=== PATIENT | male | born 1990 | race African-American/Black ===

== ENCOUNTER 2016-11-24 12:09 | Emergency (ER) | payer SELFPAY ==
[~2016-11-24] VITALS: Ht 177.8 cm; Wt 94.4 kg
[2016-11-24 12:11] VITALS: TEMP 36.8; Ht 177.8 cm; Wt 94.4 kg
--- NOTE | 2016-11-24 12:56 | EMERGENCY ROOM VISIT NOTE ---
ED Visit Note First contact with patient: 12:20 26-year-old male with long history of eczema now comes in complaining of worsening rash on the dorsum of both feet. The patient was fully evaluated by Justino Queen PA-C. Please see his note. I also independently evaluated the patient. The patient be placed on short course of steroids and Keflex for early cellulitis. The patient will need follow-up with dermatology.
[2016-11-24] MEDS ORDERED: CEPH500C2 PO (12:59)
[2016-11-24] MEDS ORDERED: METH4PAK PO (12:59)
[2016-11-24 13:06] VITALS: BP 130/74; PULSE 79; O2SAT 99
--- NOTE | 2016-11-25 11:44 | Pharmacy Progress Note ---
ED Pharmacist Culture FollowUp Date of Service: Nov 25, 2016. Left foot deep wound culture from 11/24/16 is reporting growth of 2 organisms: staph aureus and GAS - these are preliminary results and no sensitivities are yet reported. This patient was seen on 11/24 w/ c/o worsening rash / eczema on dorsum of L foot. Dr Olivo's note states pt was felt to have cellulitis and was discharged w/ Rx for Keflex 500mg QID x 7 days. This is reasonable empiric therapy and would cover GAS as well as MSSA. No action required at this time. Will await final sensitivities.
--- NOTE | 2016-11-25 17:54 | EMERGENCY ROOM VISIT NOTE ---
ED Visit Note First contact with patient: 12:20 Chief Complaint: Rash. History of Present Illness: Mr. Dsouza is a 26-year-old male who ambulates into the ED complaining of a rash on the dorsum aspects of both feet. Historically patient reports he has a history of eczema. He has never been seen by a specialist. Patient reports approximately 3-4 days ago he started noting an exacerbation of his eczema. He reports he has an [id number] "sugar scrub" that he's been using over top of the eczema on the dorsum aspects of both feet. Over the last 2 days he has noted his rash increasing as well as becoming scabbed over. He has also noted some moderate increase in pain in this area. Currently he describes his pain as a burning sensation. He rates his discomfort 6/10. The pain is nonradiating. The pain worsens with palpation and ambulation. He has not identified any alleviating factors related to the pain. He has not taken any medications for pain prior to arrival at the hospital. He denies any associated symptoms including fevers, chills, sweats, shortness of breath, cough, wheezing, abdominal pain, nausea, vomiting, decreased appetite, extremity weakness/numbness/tingling. Review of Systems: As noted above in history of present illness. 8 body systems were reviewed and found to be negative as noted above. Past Medical History: As previously noted, asthma. Current Medications: Patient denies. Allergies to Medications: Patient denies. Social History: Patient is currently employed; he feels safe in his home environment; he admits to tobacco and alcohol use. Physical Examination: Vital Signs: Date Time Temp Pulse Resp B/P Pulse Ox O2 Delivery O2 Flow Rate FiO2 11/24/16 13:06 79 16 130/74 99 11/24/16 12:11 36.8 69 17 137/87 100 Room Air GENERAL: 26-year-old male in mild distress due to pain, nontoxic-appearing, afebrile and hemodynamically stable. NEUROLOGICAL: Awake, alert and oriented to person, place and time. Answering questions appropriately and following commands. Normal gait. Good hand eye coordination. No focal motor sensory deficits. SKIN: Warm, dry and pink. Feet: Right: Patient has a thickened in scabbed rash that is sitting was an erythematous base. It is seeping a small amount of purulent like material. There are small vesicles noted on the erythematous base. There is no lymphangitis. Left: Rash is similar appearing to the right foot but is slightly smaller than the right. THORAX: Lungs sounds are clear to auscultation and equal bilaterally with symmetrical chest wall. ABDOMEN: Flat, soft and nontender. Positive bowel sounds in all quadrants. No guarding, rigidity or organomegaly. EXTREMITIES: Moves all extremities well on command and with purpose. All distal neurovascular statuses are intact and equal bilaterally. Feet: Please note SKIN above. No gross bony disease. No bony tenderness, bony crepitus. Full range of motion in all movements of the ankles and toes against resistance. Skin was warm and pink and capillary refill is brisk. He is able to distinguish light sensations through all dermatomes. ED Course: Patient is assessed as noted above. Patient's case was reviewed with Dr. Olivo; we agreed on diagnostic approach, treatment, disposition and plan. Patient was educated about tonight's findings and instructed on his treatment plan; he verbalizes understanding and agreement with this plan. Clinical Impression: Eczema exacerbation. Underlying cellulitis. Disposition: Patient discharged home in stable condition; prior to departure he was reassessed and subjectively reported he was feeling the same. Plan: Patient was prescribed Keflex 500 mg 4 times a day for 7 days. Patient was prescribed a Medrol Dosepak and instructed on achieves. Patient was encouraged to use ibuprofen and acetaminophen as needed for pain. Parents was encouraged to keep his feet dry and avoid these sugar scrub. Patient was encouraged to follow-up with his PCP and request contact with a local hypo splasher for follow-up care and treatment. Patient was encouraged return ED for increasing redness/swelling, red streaking , fevers or any new/concerning symptoms.
--- NOTE | 2016-11-26 13:18 | Pharmacy Progress Note ---
ED Pharmacist Culture FollowUp Date of Service: Nov 26, 2016. L foot cellulitis Cx finalized today and is growing 2 organisms: MSSA and GAS. He was discharged on Keflex 500mg QID x 7 days which should cover both organisms in Cx well. No action required.
== END 2016-11-24 13:07 | disposition home or self-care (01) ==
LOC: C.EDB 12:10 → C.EDD 13:07
DX: L30.9 Dermatitis, unspecified (principal); L03.115 Cellulitis of right lower limb; L03.116 Cellulitis of left lower limb